=== PATIENT | male | born 2000 | race African-American/Black ===

== ENCOUNTER 2023-01-08 15:44 | Emergency (ER) | payer SELFPAY ==
[2023-01-08] MEDS ORDERED: Ipratropium/Albuterol 3 ML NEB ONE (16:04)
[2023-01-08] MEDS ORDERED: Ipratropium Bromide 2.5 ml Neb ONE (16:07)
[2023-01-08] MEDS ORDERED: Magnesium 2 GM/50 ML BAG (IN WATER) ONE (16:15)
[2023-01-08] MEDS ORDERED: predniSONE 20 MG TAB ONE (16:15)
[2023-01-08 16:24] LABS: #Eosinphils 0.4 10x3/uL (0.0-0.5); #Monocytes 0.7 10x3/uL (0.0-1.1); %Basophils 0.3 % (0.0-2.0); %Eosinophils 6.4 % (0.0-6.0); %Lymphocytes 37.6 % (18.0-47.0); %Monocytes 10.6 % (0.0-10.0); %Neutrophils 44.9 % (40.0-75.0); Hemoglobin 15.5 g/dL (13.5-17.5); Mean Corpuscular HGB CONC 33.6 g/dL (32.0-36.0); Mean Corpuscular Hemoglobin 28.3 pg (27.0-33.0); Mean Corpuscular Volume 84.1 fl (81.2-95.1); Mean Platelet Volume 9.9 fl (7.4-10.4); Platelet Count 243 10x3/uL (150-450); RBC Distribution Width 12.1 % (11.5-14.5); Red Blood Cell (RBC) Count 5.48 10x6/uL (4.32-5.72); White Blood Cell (WBC) Count 6.6 10x3/uL (3.5-10.5)
[2023-01-08 16:34] LABS: ALT (SGPT) 15 U/L (8-55); AST (SGOT) 27 U/L (5-34); Albumin 4.7 g/dL (3.5-5.0); Alkaline Phosphatase 66 U/L (40-110); Anion Gap 13 mmol/L (10-20); BUN (Urea Nitrogen) 18 mg/dL (8.9-20.6); Bilirubin, Total 0.7 mg/dL (0.2-1.2); CK (CPK) 1140 U/L (30-200); Calc. Creatinine Clearance 0 mL/min (70-130); Calcium 9.4 mg/dL (7.8-10.44); Carbon Dioxide 25 mmol/L (22-29); Chloride 106 mmol/L (98-107); Estimated GFR 72; Globulin 3.6 g/dL (2.4-3.5); Glucose 97 mg/dL (70-105); Potassium 3.3 mmol/L (3.5-5.1); Protein, Total 8.3 g/dL (6.0-8.3); Sodium 141 mmol/L (136-145)
== END 2023-01-08 18:15 | disposition home or self-care (01) ==
LOC: CSHERS 15:44
DX: J45.901 Unspecified asthma with (acute) exacerbation (principal); E86.0 Dehydration
CPT/HCPCS: 36415; 71045; 80053; 82550; 85025; 94644; 96361; 96374; J3475; J7512; J7620